=== PATIENT | female | born 1975 | race Hispanic/Latino ===

== ENCOUNTER 2025-01-19 19:08 | Emergency (ER) | payer OTHER ==
[~2025-01-19] VITALS: Ht 152.4 cm; Wt 74.8 kg
--- NOTE | 2025-01-19 19:24 | ERN ---
ED Note History of Present Illness Stated Complaint: ABDOMINAL PAIN RLQ Chief Complaint: Abdominal Pain Time Seen by MD: 19:14 Dictation: PATIENT IS A 49-YEAR-OLD FEMALE COMING IN WITH A COMPLAINT OF AN ACUTE ONSET OF RIGHT LOWER QUADRANT PAIN THAT IS SHARP, ONSET WAS YESTERDAY. SHE SAID IT WAS DURING THE NIGHT SHE HAS HAD NAUSEA NO VOMITING NO FEVER. SHE STATES HE HAS BEEN HURTING THROUGHOUT THE DAY WORSE WHEN SHE TAKES STEPS. SHE DID NOT GO SEE HER PRIMARY CARE DOCTOR. STATES SHE STILL HAS HER OVARIES HER APPENDIX. NO HISTORY OF URINARY TRACT INFECTIONS OR RENAL STONES. Allergies: Coded Allergies: No Known Allergies (Unverified Allergy, Unknown, 01/19/25) Past Medical History Past Medical History: No Pertinent History Surgical History: History: Not Applicable LMP: Jan 16, 2025 RN Note Reviewed/Agreed w/PFSH: Yes Review of System Dictation CONSTITUTIONAL: NEGATIVE EXCEPT FOR HPI HEAD/FACE: NEGATIVE EXCEPT FOR HPI EENT: NEGATIVE EXCEPT FOR HPI RESPIRATORY: NEGATIVE EXCEPT FOR HPI GASTROINTESTINAL/ABDOMINAL: NEGATIVE EXCEPT FOR HPI REBOUND TENDERNESS RIGHT LOWER QUADRANT GENITOURINARY: NEGATIVE EXCEPT FOR HPI MUSCULOSKELETAL: NEGATIVE EXCEPT FOR HPI INTEGUMENTARY: NEGATIVE EXCEPT FOR HPI NEUROLOGICAL/PSYCH: NEGATIVE EXCEPT FOR HPI HEMATOLOGIC/LYMPHATIC: NEGATIVE EXCEPT FOR HPI ALL SYSTEMS NEGATIVE, EXCEPT NOTED ABOVE. 13 POINT REVIEW OF SYSTEMS ASSESSED AND ALL NEGATIVE EXCEPT FOR ABOVE. Initial Vital Sign VS Vital Signs Date Time Temp Pulse Resp B/P (MAP) Pulse Ox O2 Delivery O2 Flow Rate FiO2 01/19/25 19:13 99.0 78 18 146/86 97 Room Air 0 01/19/25 19:52 21 Physical Exam Dictation VITAL SIGNS REVIEWED GENERAL APPEARANCE: ALERT, ORIENTED X 3, MODERATE ACUTE DISTRESS, WELL DEVELOPED, NOURISHED. HEAD AND FACE: NON-TRAUMATIC. EYES: PERRL, PINK CONJUNCTIVAS, EYELID NO TRAUMA, ANTERIOR CHAMBER WITH ARCUS SENILIS. EARS: PINNAS INTACT AND NO SIGNS OF TRAUMA OR ERYTHEMA EAR CANALS CLEAR AND NO DISCHARGE TM NO ERYTHEMA NOSE: NO DISCHARGE, NO BLEEDING. OROPHARYNX: MOUTH NORMAL, TONGUE PINK, PHARYNX CLEAR,NO ERYTHEMA, TONSILS NO EXUDATES, NO ABSCESSES NOTED, MUCOUS MEMBRANE MOIST NECK: SUPPLE, NON-TENDER, NO THYROMEGALY, NO MASSES, NO JVD, NO BRUITS BREAST:DEFERRED CHEST:NO TENDERNESS, NO CREPITUS, NO PARADOXICAL MOVEMENT, NO RETRACTIONS LUNGS:CLEAR, WELL-VENTILATED, SYMMETRIC, NO RALES, NO WHEEZING, NO RHONCHI, NO STRIDOR, GOOD BREATH SOUNDS BILATERALLY HEART: REGULAR RATE, REGULAR RHYTHM, NO MURMUR, NO GALLOPS VASCULAR: NO PERIPHERAL EDEMA, ABDOMEN: SOFT, POSITIVE BOWEL SOUNDS, NONDISTENDED, NO GUARDING, REBOUND TENDERNESS RIGHT LOWER QUADRANT NEGATIVE CVAT BILATERAL RECTAL: DEFERRED GENITAL: DEFERRED NEUROLOGICAL: NORMAL SPEECH, MOTOR FUNCTION INTACT, SENSORY FUNCTION INTACT MUSCULOSKELETAL: NECK NONTENDER, FULL RANGE OF MOTION, BACK NONTENDER, FULL RANGE OF MOTION, EXTREMITIES: NONTENDER, FULL RANGE OF MOTION SKIN: COLOR PINK, DRY, NO TURGOR, NO RASH, NO LACERATIONS, NO ABRASIONS, NO CONTUSIONS. LYMPHATIC: DEFERRED Results (Laboratory/Radiology) Laboratory/Radiology Laboratory Tests Test 01/19/25 19:48 01/19/25 21:00 White Blood Count 7.7 K/uL (4.8-10.8) Red Blood Count 4.33 MIL/uL (4.00-5.50) Hemoglobin 12.3 g/dL (12.0-16.0) Hematocrit 37.3 % (36-48) Mean Corpuscular Volume 86.1 fL (79-99) Mean Corpuscular Hemoglobin 28.4 pg (27.0-33.0) Mean Corpuscular Hemoglobin Concent 33.0 g/dL (32.0-36.0) Red Cell Distribution Width 13.4 % (11.0-15.5) Platelet Count 233 K/uL (130-400) Mean Platelet Volume 13.0 fL (7.5-10.5) H Immature Granulocyte % (Auto) 0.3 % (0-1) Neutrophils (%) (Auto) 61.7 % (40.0-77.0) Lymphocytes (%) (Auto) 28.8 % (21.0-51.0) Monocytes (%) (Auto) 7.7 % (3.0-13.0) Eosinophils (%) (Auto) 1.0 % (0.0-8.0) Basophils (%) (Auto) 0.5 % (0.0-5.0) Neutrophils # (Auto) 4.8 K/uL (1.8-7.7) Lymphocytes # (Auto) 2.2 K/uL (1.0-4.8) Monocytes # (Auto) 0.6 K/uL (0.1-1.0) Eosinophils # (Auto) 0.08 K/uL (0.00-0.70) Basophils # (Auto) 0.04 K/uL (0.00-0.20) Absolute Immature Granulocyte (auto 0.02 K/uL (0-1) Nucleated Red Blood Cells 0.0 % (0.0-0.19) Sodium Level 138 mmol/L (136-145) Potassium Level 3.6 mmol/L (3.5-5.1) Chloride Level 101 mmol/L (101-111) Carbon Dioxide Level 28 mmol/L (21-32) Blood Urea Nitrogen 14 mg/dL (7-18) Creatinine 0.5 mg/dL (0.5-1.0) Glomerular Filtration Rate Calc 113 mL/min (>90) Random Glucose 99 mg/dL (70-105) Total Calcium 9.0 mg/dL (8.5-10.1) Lipase 32 U/L (16-77) Serum Test, Qualitative NEGATIVE (NEGATIVE) Urine Color YELLOW (YELLOW) Urine Appearance CLEAR (CLEAR) Urine pH 6.5 (5.0-8.0) Urine Specific [place] 1.026 (1.001-1.031) Urine Protein 20 mg/dL (NEGATIVE) H Urine Glucose (UA) NEGATIVE mg/dL (NEGATIVE) Urine Ketones NEGATIVE mg/dL (NEGATIVE) Urine Occult Blood NEGATIVE (NEGATIVE) Urine Nitrate NEGATIVE (NEGATIVE) Urine Bilirubin NEGATIVE mg/dL (NEGATIVE) Urine Urobilinogen 2.0 mg/dL (0.2-1.0) H Urine Leukocyte Esterase 25 Radha/uL (NEGATIVE) H Urine RBC 2-5 /HPF (0-1) H Urine WBC 2-5 /HPF (0-1) H Urine Squamous Epithelial Cells FEW /HPF (0-2) Urine Bacteria None /HPF (None Seen) Labs Reviewed?: Yes ED Course ED Course Orders Procedure Category Date Status Time Cbc With Differential LAB 01/19/25 Complete 19:21 Urinalysis Profile LAB 01/19/25 Complete 19:21 Ct Abdomen/Pelvis CT 01/19/25 Resulted W/Contrast 19:21 0.9%Nacl 1000ml (Ns PHA 01/19/25 Complete 1000ml) 19:30 Morphine 2mg Syg PHA 01/19/25 Complete (Morphine 2mg Syg) 19:30 Ondansetron 4mg Inj PHA 01/19/25 Complete (Zofran 4mg Inj) 19:30 Lipase LAB 01/19/25 Complete 19:21 Basic Metabolic Panel LAB 01/19/25 Complete 19:21 Testing, LAB 01/19/25 Complete Serum Hcg 21:17 Iohexol (Omnipaque) PHA 01/19/25 Complete 22:05 Ceftriaxone 1g Vial PHA 01/20/25 Complete (Rocephine 1g Inj) 01:30 Us Pelvic Non-Ob Comp US 01/20/25 Resulted 01:04 Current Medications Medications (Trade) Dose Ordered Sig/Vicky Route PRN Reason Start Time Stop Time Status Last Admin Dose Admin Ceftriaxone Sodium (ROCEphine 1G INJ) 1 gm ONCE ONCE IVPB 01/20/25 01:30 01/20/25 01:31 DC 01/20/25 01:20 Iohexol (Omnipaque) 75 ml STK-MED ONCE IV 01/19/25 22:05 01/19/25 22:09 DC Morphine Sulfate (morPHINE 2MG SYG) 2 mg ONCE IVP 01/19/25 19:30 01/19/25 23:30 DC 01/19/25 20:01 Ondansetron HCl (zoFRAN 4MG INJ) 4 mg ONCE IVP 01/19/25 19:30 01/19/25 22:30 DC 01/19/25 19:45 Sodium Chloride 1,000 ml @ 0 mls/hr ONCE IV 01/19/25 19:30 01/19/25 23:30 DC 01/19/25 19:45 Vital Signs Date Time Temp Pulse Resp B/P (MAP) Pulse Ox O2 Delivery O2 Flow Rate FiO2 01/20/25 02:10 98.2 90 18 125/62 97 Room Air* 0 01/19/25 19:52 98.2 87 18 133/56 99 Room Air* 0 21 01/19/25 19:13 99.0 78 18 146/86 97 Room Air 0 Medical Decision Making MDM Patient did have a 8.0 x 6.3 x 7.6 cm right hypoechoic masslike structure. I did speak to Dr. Camacho of the on-call specialty trimmer service at [facility] explained the case to him expecting for transfer. He stated that this is a chronic finding and this can be followed up as an outpatient. He actually gave his clinic information to give to the patient to follow up on Wednesday. Patient did have everything a splint and she verbalized understanding of the plan. She was agreeable to the plan. MDM: Differential diagnosis: Ovarian mass Rationale: Tests considered and ordered secondary to shared decision making include: Previous outside records reviewed: Old ER visits. Risk of complication and/or morbidity or mortality of patient management: None Medications-Per medication reconciliation Need for hospitalization: Patient does not meet criteria for hospitalization. Need for emergency major/minor surgery: No There are no social concerns with this patient. Prescription drug management Prescriptions will include symptomatic care Patient's prior external medical records from other ER visits were reviewed by me as indicated. Prior testing and results from previous visits were reviewed. Prior tests were taken into account with medical decision making and resource utilization, independent historian/historians were used to obtain complete medical history. I independently interpreted the test that were performed, results were reviewed by me and considered findings on radiology if ordered. Medical management and examination interpretation discussions were had by me with other qualified healthcare professionals as indicated for the patient's care. DX & DISP Disposition: Discharge Departure Impression: Primary Impression: Pelvic pain Additional Impression: Pelvic mass Condition: Stable Additional Instructions: Please follow up with your primary care physician as well as establish with Dr. Camacho of the [facility] women[facility] clinic. You has been given directions and instructions on how to schedule an appointment. Please follow up with him for continuance of care. Referrals: SELF,REFERRAL (PCP) ROBERT ANGELA NP Jan 19, 2025 19:24 KERVIN EMERSON MD Jan 20, 2025 04:36
[2025-01-19] MEDS: 0.9%NACL 1000ML 1,000 ML IV SCH (19:45)
[2025-01-19] MEDS: ondanSETRON 4MG INJ IVP SCH (19:45)
[2025-01-19 20:01] LABS: BASOPHILS # (AUTO) 0.04 K/uL (0.00-0.20); BASOPHILS % (AUTO) 0.5 % (0.0-5.0); EOSINOPHILS # (AUTO) 0.08 K/uL (0.00-0.70); HEMATOCRIT 37.3 % (36-48); IMMATURE GRANULOCYTE ABSOLUTE 0.02 K/uL (0-1); LYMPHOCYTES # (AUTO) 2.2 K/uL (1.0-4.8); LYMPHOCYTES % (AUTO) 28.8 % (21.0-51.0); MEAN CORPUSCULAR HEMOGLOBIN 28.4 pg (27.0-33.0); MEAN CORPUSCULAR VOLUME 86.1 fL (79-99); MONOCYTES # (AUTO) 0.6 K/uL (0.1-1.0); MONOCYTES % (AUTO) 7.7 % (3.0-13.0); NEUTROPHILS # (AUTO) 4.8 K/uL (1.8-7.7); NEUTROPHILS % (AUTO) 61.7 % (40.0-77.0); PLATELET COUNT (AUTO) 233 K/uL (130-400); RED BLOOD CELL COUNT(AUTO) 4.33 MIL/uL (4.00-5.50); RED CELL DISTRIBUTION WIDTH 13.4 % (11.0-15.5); WHITE BLOOD COUNT (AUTO) 7.7 K/uL (4.8-10.8)
[2025-01-19] MEDS: morPHINE 2 MG SYG IVP SCH (20:01)
[2025-01-19 20:23] LABS: CREATININE 0.5 mg/dL (0.5-1.0); POTASSIUM 3.6 mmol/L (3.5-5.1)
[2025-01-19 21:28] LABS: APPEARANCE,URINE CLEAR (CLEAR); BILIRUBIN,URINE NEGATIVE (NEGATIVE); COLOR,URINE YELLOW (YELLOW); GLUCOSE, URINE (UA) NEGATIVE (NEGATIVE); KETONES,URINE NEGATIVE (NEGATIVE); LEUKOCYTE ESTERASE ,URINE 25 Leu/uL (NEGATIVE); NITRATE,URINE NEGATIVE (NEGATIVE); OCCULT BLOOD,URINE NEGATIVE (NEGATIVE); PH,URINE 6.5 (5.0-8.0); PROTEIN,URINE 20 mg/dL (NEGATIVE)
[2025-01-19 21:32] LABS: ADD UA MICROSCOPIC YES
[2025-01-19 21:33] LABS: MUCUS,URINE RARE LPF (None Seen); SQUAMOUS EPITHELIAL CELL,UR FEW /HPF (0-2)
[2025-01-19] MEDS ORDERED: IOHEXOL-350 75 ML VIAL IV ONE (22:05)
--- NOTE | 2025-01-20 01:00 | HMCIMG ---
EXAMINATION: CT Abdomen and Pelvis with IV Contrast CLINICAL HISTORY: Patient presents with right lower quadrant pain and rebound tenderness. TECHNIQUE: Axial computed tomography images of the abdomen and pelvis with intravenous contrast. CONTRAST: 75 cc of Omnipaque 350. COMPARISON: None provided. FINDINGS: LUNG BASES: The lung bases are clear. No pleural effusions. LIVER: Unremarkable. GALLBLADDER AND BILE DUCTS: The gallbladder is within normal limits. No radiopaque gallstones. No biliary ductal dilatation. PANCREAS: Unremarkable. SPLEEN: Unremarkable. ADRENAL GLANDS: Unremarkable. KIDNEYS, URETERS, AND BLADDER: The kidneys are within normal limits. No hydronephrosis, hydroureter, or urinary calculi. The urinary bladder is incompletely distended, limiting evaluation of the bladder wall. In the appropriate clinical setting, mild cystitis cannot be excluded. Recommend clinical correlation. STOMACH AND BOWEL: Unremarkable appearance of the stomach and bowel. No bowel obstruction, enteritis, or colitis. APPENDIX: The appendix is normal. No CT features of acute appendicitis. PERITONEUM: No free fluid. No free air. LYMPH NODES: No lymphadenopathy. REPRODUCTIVE: There is a large 8.0 x 7.7 x 7.3 cm hyperdense right adnexal lesion abutting the right lateral wall of the uterine body and fundus, indenting the bladder dome. The right ovary is not separately visualized from this lesion, concerning for a right ovarian lesion. Recommend pelvic ultrasound and MRI pelvis with contrast for further evaluation. No focal left adnexal lesion. The uterus is unremarkable. VASCULATURE: No abdominal aortic aneurysm. BONES: No aggressive-appearing osseous lesion. No acute osseous abnormality. IMPRESSION: Large 8.0 x 7.7 x 7.3 cm hyperdense right adnexal lesion concerning for ovarian pathology. Right ovary not separately visualized. Recommend pelvic ultrasound and MRI pelvis with contrast for further characterization. The appendix is normal. /[place]
[2025-01-20] MEDS: cefTRIAXone 1G VIAL IVPB ONE (01:20)
--- NOTE | 2025-01-20 03:07 | HMCIMG ---
EXAM: US Pelvis, Complete. CLINICAL HISTORY: Adnexal mass. Pain. TECHNIQUE: Transabdominal pelvic ultrasound (complete) with image documentation. COMPARISON: None provided. FINDINGS: The uterus measures 8.5 x 4.1 x 4.5 cm. The endometrial thickness is within normal limits and measures up to 4 mm. The right ovary is not visualized due to bowel loops. A questionable hypoechoic mass-like structure with vascularity is evident in the right adnexa, measuring about 8.0 x 6.3 x 7.6 cm. The left ovary and left adnexal lesion are limited in visualization due to bowel loops. No free fluid in the cul-de-sac. IMPRESSION: Questionable hypoechoic mass-like structure with vascularity in the right adnexa, likely a subserosal right uterine fibroid or a right ovarian mass. The bilateral ovaries are not visualized due to technical limitations. /Center
--- NOTE | 2025-01-20 03:47 | NUR ---
SPOKE WITH JACKSON AT [facility]. TRANSFER REQUEST INITIATED.
[2025-01-20 04:46] VITALS: BP 115/55; PULSE 75; RESP 18; TEMP 98.2; O2SAT 98
== END 2025-01-20 03:47 | disposition hospice, inpatient (51) ==
LOC: EDH 19:08
DX: R19.00 Intra-abdominal and pelvic swelling, mass and lump, unspecified site (principal); R10.2 Pelvic and perineal pain; Z98.890 Other specified postprocedural states
CPT/HCPCS: 99285; 74177; 96375; 96361; 80048; 84703; 83690; 85025; 81001; 36415; 96365; 76856; J2270; J7030; J2405; Q9967; J0696